=== PATIENT | female | born 1985 | race African-American/Black ===

== ENCOUNTER 2021-02-26 16:47 | Emergency (ER) | payer OTHER, SELFPAY | END 2021-02-26 20:42 | disposition home or self-care (01) | LOC: CSHERS 16:47 | DX: S06.0X9A Concussion with loss of consciousness of unspecified duration, initial encounter (principal); M25.571 Pain in right ankle and joints of right foot; M54.6 Pain in thoracic spine; M54.2 Cervicalgia; J45.909 Unspecified asthma, uncomplicated; V43.52XA Car driver injured in collision with other type car in traffic accident, initial encounter | CPT/HCPCS: 70450; 72125 ==